=== PATIENT | female | born 1975 | race Caucasian/White ===

== ENCOUNTER 2016-10-29 07:28 | Day surgery (SDC) | payer BC ==
[~2016-10-29 07:28] MED LIST: Lactated Ringers 1,000 ML IV SCH; Lidocaine 1%/Sod Bicarbonate in NS 8.4% 1 ML Syringe IV PRN; Midazolam 1 MG/ML 2 ML SDV ONE; Ondansetron 4 MG/2 ML SDV IVPUSH PRN; Propofol 200 MG/20 ML SDV ONE; Rocuronium 50 MG/5 ML Vial ONE; Sodium Chloride 0.9% 10 ML Syringe FLUSH PRN; ceFAZolin 1 GM Vial ONE; diphenhydrAMINE 50 MG/ML SDV IVPUSH PRN; fentaNYL 250 MCG/5 ML SDV ONE
[2016-10-29] MEDS: Lidocaine 1%/Sod Bicarbonate in NS 8.4% 1 ML Syringe IV PRN (07:40)
--- NOTE | 2016-10-29 07:44 | PCM.PREANE ---
Preanesthetic Assessment - Anesthesia/Transfusion/Family Hx Anesthesia History: Prior Anesthesia Without Reaction Family History of Anesthesia Reaction: No (not that she is aware of-patient is adopted) Transfusion History: Prior Transfusion Without Reaction Intubation History: Unknown - Review of Systems General: No Symptoms Pulmonary: No Symptoms Cardiovascular: No Symptoms Gastrointestinal: No symptoms Neurological: No Symptoms Other: Reports: None - Physical Assessment NPO Status Date: 10/28/16 NPO Status Time: 23:45 Pulse: 93 O2 Sat by Pulse Oximetry: 97 Respiratory Rate: 16 Blood Pressure: 127/78 Temperature: 96.5 C ASA Class: 2 Mental Status: Alert & Oriented x3 Airway Class: Mallampati = 2 Dentition: Reports: Normal Dentition Thyro-Mental Finger Breadths: 3 Mouth Opening Finger Breadths: 3 ROM/Head Extension: Full Lungs: Clear to auscultation, Normal respiratory effort Cardiovascular: Regular Rate, Regular Rhythm - Allergies Allergies/Adverse Reactions: Allergies Allergy/AdvReac Type Severity Reaction Status Date / Time No Known Allergies Allergy Verified 10/28/16 14:09 - Anesthesia Plan Pre-Op Medication Ordered: None - Acknowledgements Anesthesia Type Planned: General Anesthesia Pt an Appropriate Candidate for the Planned Anesthesia: Yes Alternatives and Risks of Anesthesia Discussed w Pt/Guardian: Yes Pt/Guardian Understands and Agrees with Anesthesia Plan: Yes PreAnesthesia Questionnaire HEENT History: Reports: Impaired Vision, Other (See Below) Other HEENT History: wears glasses Cardiovascular History: Reports: None Respiratory History: Reports: None Gastrointestinal History: Reports: None Genitourinary History: Reports: None [employer]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: Other (See Below) LMP (Approximate): 1 Month (pt has had a tubal ligation) Other OB/BYN History: breast lump Musculoskeletal History: Reports: Back Pain, Chronic, Other (See Below) Other Musculoskeletal History: back pain Neurological History: Reports: None Psychiatric History: Reports: Other (See Below) Other Psychiatric History: claustrophobia Endocrine/Metabolic History: Reports: None Hematologic History: Reports: Blood Transfusion(s) (pt had blood transfusion following of child) Immunologic History: Reports: None Oncologic (Cancer) History: Reports: None, Breast (see note in chart) Dermatologic History: Reports: None - Past Surgical History Head Surgeries/Procedures: Reports: None HEENT Surgical History: Reports: None Cardiovascular Surgical History: Reports: None Respiratory Surgical History: Reports: None GI Surgical History: Reports: None Female Surgical History: Reports: D&C, Tubal Ligation (no anesthetic complications noted with either surgery) Male Surgical History: Reports: None Endocrine Surgical History: Reports: None Neurological Surgical History: Reports: None Musculoskeletal Surgical History: Reports: None Oncologic Surgical History: Reports: None Dermatological Surgical History: Reports: None - SUBSTANCE USE Smoking Status *Q: Former Smoker Number of Drinks Per Day: 1 Recreational Drug Use History: No - HOME MEDS Home Medications: Home Meds Ibuprofen [Advil] 800 mg PO BID PRN 10/28/16 [History] Multivitamin [Multivitamins] 1 tab PO DAILY 10/28/16 [History] Naproxen Sodium [Aleve] 220 mg PO BID 10/28/16 [History] - CURRENT (IN HOUSE) MEDS Current Meds: Current Medications Diphenhydramine HCl (Benadryl) 25 mg IVPUSH Q6H PRN PRN Reason: pruritis Fentanyl (Sublimaze) 50 mcg IVPUSH Q5M PRN PRN Reason: Pain Stop: 10/29/16 07:33 Hydromorphone HCl (Dilaudid) 0.5 mg IVPUSH Q15M PRN PRN Reason: severe pain Stop: 10/29/16 07:33 Lactated Ringer's (Ringers, Lactated) 1,000 mls @ 125 mls/hr IV ASDIRECTED ALEXANDR Stop: 10/29/16 23:00 Lidocaine HCl (Xylocaine-Mpf 1%) 10 ml INJECT ONETIME ONE Stop: 10/29/16 08:16 Lidocaine/Sodium Bicarbonate (Buffered Lidocaine 1% In Ns 8.4%) 0.25 ml IV ONETIME PRN PRN Reason: Prior to IV Start Stop: 10/29/16 18:00 Ondansetron HCl (Zofran) 4 mg IVPUSH ONETIME PRN PRN Reason: Nausea/Vomiting Sodium Chloride (Saline Flush) 10 ml FLUSH ASDIRECTED PRN PRN Reason: Keep Vein Open Stop: 10/29/16 18:00 Discontinued Medications Cefazolin Sodium (Ancef) Confirm Administered Dose 1 gm .ROUTE .STK-MED ONE Stop: 10/29/16 07:08 Cefazolin Sodium (Ancef) Confirm Administered Dose 1 gm .ROUTE .STK-MED ONE Stop: 10/29/16 07:08 Fentanyl (Sublimaze) Confirm Administered Dose 250 mcg .ROUTE .STK-MED ONE Stop: 10/29/16 07:03 Lactated Ringer's (Ringers, Lactated) 1,000 mls @ 125 mls/hr IV ASDIRECTED ALEXANDR Lidocaine/Sodium Bicarbonate (Buffered Lidocaine 1% In Ns 8.4%) 0.25 ml IV ONETIME PRN PRN Reason: Prior to IV Start Midazolam HCl (Versed 1 Mg/Ml) Confirm Administered Dose 2 mg .ROUTE .STK-MED ONE Stop: 10/29/16 07:04 Propofol (Diprivan 20 Ml) Confirm Administered Dose 200 mg .ROUTE .STK-MED ONE Stop: 10/29/16 07:03 Rocuronium [place] (Zemuron) Confirm Administered Dose 50 mg .ROUTE .STK-MED ONE Stop: 10/29/16 07:04 Sodium Chloride (Saline Flush) 10 ml FLUSH ASDIRECTED PRN PRN Reason: Keep Vein Open
[2016-10-29] MEDS ORDERED: Sodium Chloride 0.9% 10 ML ONE (07:51)
[2016-10-29] MEDS ORDERED: Lidocaine 1% with EPINEPHrine 1:100,000 20 ML MDV ONE (07:52)
[2016-10-29] MEDS ORDERED: Bupivacaine 0.5%/EPINEPHrine 1:200,000 50 ML MDV ONE (07:52)
[2016-10-29] MEDS ORDERED: HYDROmorphone 0.5 MG/0.5 ML Syringe IVPUSH PRN ×2 (08:00→12:43)
[2016-10-29] MEDS ORDERED: fentaNYL 100 MCG/2 ML SDV IVPUSH PRN (08:00)
[2016-10-29] MEDS ORDERED: Lidocaine 1% 30 ML SDV INJECT ONE (08:15)
--- NOTE | 2016-10-29 09:34 | PCM.OPNOTE ---
- General Post-Op/Procedure Note Date of Surgery/Procedure: 10/29/16 Operative Procedure(s): 1. Left partial mastectomy with sentinel lymph node biopsy. 2. Injection of blue dye and radiotracer Pre Op Diagnosis: Invasive ductal carcinoma of the central aspect of the left breast, ER/ID positive, HER-2/rufus negative, with some associated ductal carcinoma in situ Post-Op Diagnosis: Same Anesthesia Technique: General ET tube, Local Primary Surgeon: Татьяна Medina Anesthesia Provider: Sheila Ramirez Pathology: 1. Left breast tissue 2. Left sentinel node Count 957, background 200 3. New inferior margin 4. New lateral margin Fluid Replacement, Intraop: 1,200 (mL crystalloid ) EBL in mLs: 10 Complications: None Condition: Good Free Text/Narrative:: INDICATION FOR PROCEDURE: The patient is a 41-year-old woman who was referred to me by FABIO Guy. She was ultimately found to have a 7 mm lesion of the central left breast on breast MRI that was biopsy proven invasive ductal carcinoma, ER/ID positive, HER-2/rufus negative. The patient desired breast conservation therapy. Wire localized partial mastectomy with sentinel lymph node biopsy were discussed with her. Dr. Soni De Santiago is her medical oncologist. Dr. Rolando Lombardi is her radiation oncologist. We discussed risks and benefits of the procedure and the patient found these risks acceptable and agreed to proceed. DESCRIPTION OF PROCEDURE: The patient was taken to the operating room and placed in the supine position. Sequential compressive devices were placed on the bilateral lower extremities. Preoperative antibiotics were administered as per protocol. After induction of general endotracheal anesthesia, the left breast was prepped with alcohol and I injected sulfur colloid into the dermal space of the nipple-areolar complex. This was followed with an injection of 1 mL of methylene blue mixed with 9 mL of sterile saline into the dermal space. The breast was then massaged for 5 minutes. The left breast was then prepped and draped in usual sterile fashion. The patient's wire localization films were reviewed. A curvilinear incision was made using a scalpel after first injecting local anesthetic at the superior aspect of the areola. Dissection was carried back to the wire entering the breast tissue, and the wire was brought out of the skin into the wound. The surrounding tissue was grasped using an Allis clamp and was excised using Harmonic scalpel. The specimen was marked with a silk suture, double stitch anterior, long stitch laterally, short stitch superiorly. This was sent for mammography, followed by evaluation by pathology. The clip was noted to be in a good location within the specimen. Pathology notified me they would recommend additional margin inferiorly and laterally based on the location of the biopsy cavity within the specimen. Additional margins were taken using the Harmonic scalpel. A stitch was placed on the new margin. 3-0 Vicryl suture was used to reapproximate the breast tissue after copious irrigation and hemostasis was obtained using electrocautery. The gamma probe was used to identify the area of maximum uptake in the left axilla. Local anesthetic was injected and a skin incision was made using a scalpel. This was carried down through the subcutaneous fat to the axillary fat pad using electrocautery. The sentinel node was then dissected from the surrounding structures with utilization of the gamma probe for guidance. The node was identified and excised using a harmonic scalpel. The node was blue and radioactive. The count on the sentinel node was 957. The background was 200 maximally, but most most of the background was 90 or less. The pathology returned that the sentinel node was negative. The axilla was irrigated, hemostasis confirmed, and the tissue approximated using a running 3-0 Vicryl suture. The skin incisions from both sites were closed using a running 4-0 subcuticular Monocryl suture. Dermabond was applied to both incision sites. 4 x 4's and a Kerlix fluffs were applied to the wounds. The patient was placed in a breast binder. The patient was awakened from sedation and transferred to the recovery room in stable condition having tolerated the procedure well. Sponge and instrument counts were reported correct at the end of the case. POSTOPERATIVE PLAN: I discussed with the patient's my intraoperative findings and recommendations. She has been provided with a prescription for Percocet 5/325 mg 1-2 tabs by mouth every 4 hours PRN pain, Senna -S, and Zofran ODT. She is to wear her breast binder or supportive athletic bra continuously for 2 weeks. She may remove her dressings and shower tomorrow afternoon. She is to call the office with any questions or concerns before her followup appointment in one week.
[2016-10-29] MEDS ORDERED: fentaNYL 250 MCG/5 ML SDV ONE (09:51)
[2016-10-29] MEDS ORDERED: HYDROmorphone 1 MG/ML Syringe ONE (10:19)
[2016-10-29] MEDS ORDERED: Neostigmine Methylsulfate 1 MG/ML 5 ML Syringe ONE (10:49)
[2016-10-29] MEDS ORDERED: Ondansetron 4 MG/2 ML SDV ONE (10:49)
[2016-10-29] MEDS ORDERED: Lactated Ringers 1,000 ML ONE (10:52)
--- NOTE | 2016-10-29 11:25 | PCM.POSTAN ---
POST ANESTHESIA ASSESSMENT - MENTAL STATUS Mental Status: alert, oriented - VITAL SIGNS Pulse Rate: 113 SaO2: 100 Resp Rate: 27 Blood Pressure: 142/98 Temperature: 36.8 C - RESPIRATORY Respiratory Status: respiratory rate WNL, airway patent, O2 saturation stable - CARDIOVASCULAR CV Status: pulse rate WNL, blood pressure stable - GASTROINTESTINAL GI Status: no symptoms - PAIN Pain Score: 0 - POST OP HYDRATION Hydration Status: adequate & stable
[2016-10-29] MEDS: HYDROmorphone 0.5 MG/0.5 ML Syringe IVPUSH PRN ×2 (11:28→11:47)
--- NOTE | 2016-10-29 11:30 | MY ---
Needle localization of left breast Procedure was explained to the patient. Stereotactic marking clip that revealed previous carcinoma was localized. After confirmation of good needle position, hookwire was placed through the needle and needle removed. Final position of the wire shows very close position of the stiff end of the wire to the stereotactic marking clip. Following lumpectomy, specimen radiograph was obtained which will be dictated separately which shows removal of the wire and of the clip. Impression: 1. Successful needle needle localization of stereotactic marking clip. Diagnostic code #1
[2016-10-29] MEDS: fentaNYL 100 MCG/2 ML SDV IVPUSH PRN ×4 (11:34→12:07)
--- NOTE | 2016-10-29 11:41 | MY ---
Specimen radiograph: Single specimen radiograph was obtained following lumpectomy. Study shows the wire in place as well as a stereotactic marking clip. Impression: 1. Specimen radiograph showing a needle localization wire and stereotactic marking clip. Diagnostic code #2
[2016-10-29] MEDS ORDERED: Acetaminophen/oxyCODONE 325-5 MG Tab PO PRN (11:46)
[2016-10-29 13:11] VITALS: BP 122/84
--- NOTE | 2016-10-30 11:31 | NM ---
[place] lymph node injection Dr. Medina injected 1.02 mCi of technetium 99m sulfur colloid into the left breast for sentinel lymph node study. No images were obtained. Diagnostic code #1
== END 2016-10-29 13:15 | disposition home or self-care (01) ==
LOC: JD.SDS 07:28
PROVIDERS: ATTEND Surgery
DX: C50.112 Malignant neoplasm of central portion of left female breast (principal); N60.12 Diffuse cystic mastopathy of left breast; E66.9 Obesity, unspecified; Z17.0 Estrogen receptor positive status [ER+]; Z80.3 Family history of malignant neoplasm of breast; Z98.51 Tubal ligation status; Z98.890 Other specified postprocedural states; Z79.899 Other long term (current) drug therapy; Z87.891 Personal history of nicotine dependence
CPT/HCPCS: 19281; 19283; 19301; 38525; 38792; 38900; 76098; 88305; 88307; 88329; 88331; 88332; A9270; A9541; J0690; J1170; J2250; J2405; J2710; J3010; J7050; J7120; Q9968; 00404; J2704

== ENCOUNTER 2021-01-31 19:11 | Emergency (ER) | payer BC, OTHER ==
--- NOTE | 2021-01-31 19:18 | EDM.PDOC ---
ED HPI GENERAL MEDICAL PROBLEM - General Chief Complaint: Back Pain or Injury Stated Complaint: [facility] Time Seen by Provider: 01/31/21 19:17 - History of Present Illness INITIAL COMMENTS - FREE TEXT/NARRATIVE: 45-year-old female presents the emergency room with low back pain. The patient does not know what happened she slid back into her little car seat and developed sudden onset low back pain. She does not have any pain that extends into her legs she has no loss of bowel or bladder control the pain is localized to her low back. The patient has been told she has degenerative joint disease in her back and figures it might be getting worse. The patient can hardly move and needed to be brought in by EMS.. - Related Data Allergies Allergy/AdvReac Type Severity Reaction Status Date / Time pregabalin [From Lyrica] Allergy Fainting Verified 01/31/21 19:21 Home Meds: Home Meds DULoxetine [Cymbalta] 60 mg PO DAILY 01/31/21 [History] LORazepam [Ativan] 1 mg PO BEDTIME 01/31/21 [History] Metoprolol Succinate [Toprol Xl] 25 mg PO DAILY 01/31/21 [History] Venlafaxine [Effexor XR] 37.5 mg PO DAILY 01/31/21 [History] oxyCODONE 5 mg PO DAILY 01/31/21 [History] Past Medical History HEENT History: Reports: Impaired Vision, Other (See Below) Other HEENT History: wears glasses Cardiovascular History: Reports: None Respiratory History: Reports: None Gastrointestinal History: Reports: None Genitourinary History: Reports: None CLAIMS CONSULTANT History: Reports: Other (See Below) Other CLAIMS CONSULTANT History: breast lump Musculoskeletal History: Reports: Back Pain, Chronic, Other (See Below) Other Musculoskeletal History: back pain Neurological History: Reports: None Psychiatric History: Reports: Other (See Below) Other Psychiatric History: claustrophobia Endocrine/Metabolic History: Reports: None Hematologic History: Reports: Blood Transfusion(s) (pt had blood transfusion following of child) Immunologic History: Reports: None Oncologic (Cancer) History: Reports: None, Breast (see note in chart) Dermatologic History: Reports: None - Past Surgical History Head Surgeries/Procedures: Reports: None HEENT Surgical History: Reports: None Cardiovascular Surgical History: Reports: None Respiratory Surgical History: Reports: None GI Surgical History: Reports: None Female Surgical History: Reports: D&C, Tubal Ligation (no anesthetic complications noted with either surgery) Male Surgical History: Reports: None Endocrine Surgical History: Reports: None Neurological Surgical History: Reports: None Musculoskeletal Surgical History: Reports: None Oncologic Surgical History: Reports: None Dermatological Surgical History: Reports: None Social & Family History - Family History Family Medical History: No Pertinent Family History - Caffeine Use Caffeine Use: Reports: None - Living Situation & Occupation Living situation: Reports: Occupation: Employed ED ROS GENERAL - Review of Systems Review Of Systems: See Below Constitutional: Reports: No Symptoms HEENT: Reports: No Symptoms Respiratory: Reports: No Symptoms Cardiovascular: Reports: No Symptoms GI/Abdominal: Reports: No Symptoms : Reports: No Symptoms Musculoskeletal: Reports: Back Pain Skin: Reports: No Symptoms Neurological: Reports: No Symptoms ED EXAM, GENERAL - Physical Exam Exam: See Below Exam Limited By: No Limitations General Appearance: Alert, Obese Head: Atraumatic Neck: Normal Inspection. No: Full Range of Motion, Lymphadenopathy (R), Tender Lateral, Tender Midline Respiratory/Chest: No Respiratory Distress, Lungs Clear, Normal Breath Sounds Cardiovascular: Regular Rate, Rhythm, No Edema, No Murmur GI/Abdominal: Normal Bowel Sounds, Soft, Non-Tender Back Exam: Other (Tenderness in the low back mostly in the paraspinous muscle region right more so than left) Extremities: Normal Range of Motion (Straight leg raises do not cause worsening back pain except a little bit of worsening past spasm at near 90 degrees no radicular irritation) Neurological: Alert, Oriented, Normal Cognition Course - Orders/Labs/Meds Meds: Medications Discontinued Medications Generic Name Dose Route Start Last Admin Trade Name Freq PRN Reason Stop Dose Admin Hydromorphone HCl 0.5 mg 01/31/21 20:13 01/31/21 20:18 Hydromorphone 0.5 Mg/0.5 Ml Syringe IVPUSH 01/31/21 20:14 0.5 mg ONETIME ONE Administration Ketorolac Tromethamine 60 mg 01/31/21 20:10 Ketorolac 60 Mg/2 Ml Sdv IM 01/31/21 20:11 ONETIME ONE Orphenadrine Citrate 100 mg 01/31/21 20:10 01/31/21 20:16 Orphenadrine 100 Mg Tab.Er PO 01/31/21 20:11 100 mg ONETIME ONE Administration - Re-Assessments/Exams Free Text/Narrative Re-Assessment/Exam: 01/31/21 22:16 X-ray is quite concerning for a T12 with an anterior wedge deformity. She may need further images to clarify the age of this. But I can get an MRI on her tonight. We will start her on some hydrocodone continue the Norflex and have her follow-up with her primary healthcare provider they can facilitate further imaging and referral for kyphoplasty if indicated. Departure - Departure Time of Disposition: 22:19 Disposition: Home, Self-Care 01 Clinical Impression: Compression fracture of T12 vertebra - Discharge Information Forms: ED Department Discharge Additional Instructions: Return to the emergency room with any questions problems or worsening symptoms. I have given you 20 pills of hydrocodone 5/325 take 1 or 2 every 6 hours as needed for pain. He will get these from the machine out in the waiting room. Do not drive or return to work within 12 hours of using this medication. Follow-up with your regular healthcare provider as soon as you can further imaging may be beneficial such as an MRI. If indicated consider referral to [facility] for repair of this with a procedure called kyphoplasty.
[2021-01-31] MEDS ORDERED: Orphenadrine 100 MG Tab.ER PO ONE (20:10)
[2021-01-31] MEDS ORDERED: Ketorolac 60 MG/2 ML SDV IM ONE (20:10)
[2021-01-31] MEDS ORDERED: HYDROmorphone 0.5 MG/0.5 ML Syringe IVPUSH ONE (20:13)
--- NOTE | 2021-01-31 21:24 | CR ---
Lumbar spine: AP and lateral views of the lumbar spine were obtained as well as coned-down lateral view centered to the lumbosacral junction. Comparison: Prior MRI lumbar spine study of 07/05/15. Fairly severe anterior wedge deformity is noted of T12. Age of this is indeterminate and please correlate with patient's symptoms. Slight sclerosis is noted within the inferior edge of L1 with mild posterior disc space narrowing at L1-2. Minimal disc space narrowing is seen posteriorly at L2-3. Other disc spaces are maintained. Mild scattered endplate osteophytes are seen. Pedicles are intact. Visualized transverse and spinous processes are intact. Impression: 1. Fairly severe anterior wedge deformity at T12 which is age indeterminate and please correlate with patient's symptoms. 2. Mild degenerative change as described above. Diagnostic code #3
[2021-01-31 22:08] VITALS: BP 168/99; PULSE 83
[2021-01-31] MEDS ORDERED: Acetaminophen/HYDROcodone 325-5 MG Tab PO ONE (22:15)
== END 2021-01-31 22:45 | disposition home or self-care (01) ==
LOC: JD.ED 19:11
DX: S22.080A Wedge compression fracture of T11-T12 vertebra, initial encounter for closed fracture (principal); Z88.8 Allergy status to other drugs, medicaments and biological substances; X50.0XXA Overexertion from strenuous movement or load, initial encounter
CPT/HCPCS: 72100; 96374; 99284; A9270; J1170; 99283

== ENCOUNTER 2024-03-07 03:08 | Emergency (ER) | payer OTHER ==
[2024-03-07] MEDS: Sodium Chloride 0.9% 1,000 ML IV ONE (03:33)
[2024-03-07 03:45] LABS: BASOPHILS ABSOLUTE AUTO 0.1 K/mm3 (0.0-0.2); BASOPHILS PERCENT AUTO 0.5 % (0.0-1.0); EOSINOPHILS PERCENT AUTO 0.1 % (0.0-6.0); HEMATOCRIT 53.8 % (37.0-47.0); HEMOGLOBIN 18.1 gm/dl (12.0-16.0); IMMATURE GRAN ABSOLUTE AUTO 1.29 K/mm3 (0.00-0.05); IMMATURE GRAN PERCENT AUTO 5.9 % (0.0-0.4); LYMPHOCYTES ABSOLUTE AUTO 1.1 K/mm3 (1.0-4.8); LYMPHOCYTES PERCENT AUTO 4.9 % (24.0-44.0); MEAN CORPUSCULAR HEMOGLOBIN 30.7 pg (28.0-32.0); MEAN CORPUSCULAR HGB CONC 33.6 g/dl (32.0-36.0); MEAN CORPUSCULAR VOLUME 91.2 fl (83.0-99.0); MEAN PLATELET VOLUME 10.8 fl (9.4-12.3); MONOCYTES ABSOLUTE AUTO 1.5 K/mm3 (0.0-0.8); MONOCYTES PERCENT AUTO 6.7 % (0.0-8.0); NEUTROPHILS PERCENT AUTO 81.9 % (41.0-71.0); PLATELET COUNT,PLT 358 K/mm3 (150-400); WHITE BLOOD CELL COUNT,WBC 21.98 K/mm3 (3.9-11.3)
[2024-03-07] MEDS ORDERED: Insulin Regular, Human 100 Units/ML 3 ML Vial IVPUSH ONE (03:49)
[2024-03-07 03:58] LABS: A/G RATIO 0.5 (1-2); ALANINE AMINOTRANSFERASE,ALT 37 U/L (14-59); ALBUMIN 3.1 g/dl (3.4-5.0); ALKALINE PHOSPHATASE 258 U/L (46-116); ANION GAP 35.1 (5-15); BLOOD UREA NITROGEN,BUN 21 mg/dL (7-18); BUN/CREATININE RATIO 13.1 (14-18); CALCIUM 10.3 mg/dL (8.5-10.1); CHLORIDE,CL 82 mEq/L (98-107); CREATININE 1.6 mg/dL (0.55-1.02); EST CRCL DRUG DOSING (CG) 49.08 mL/min; ESTIMATED GFR 39 mL/min (>60); PROTEIN TOTAL,TP 9.1 g/dl (6.4-8.2); SODIUM,NA 120 mEq/L (136-145); TROPONIN I HIGH SENSITIVITY 20 pg/mL (<=51)
[2024-03-07] MEDS: Insulin Regular, Human 100 Units/ML 10 ML Vial IVPUSH ONE (04:02)
[2024-03-07] MEDS: Sodium Chloride 0.9% 1,000 ML ONE (04:04)
[2024-03-07 04:05] LABS: PCO2 ARTERIAL 9.1 mmHg (35.0-45.0)
[2024-03-07 04:05] LABS: CARBON DIOXIDE,CO2 6 mEq/L (21-32); LACTIC ACID 7.9 mmol/L (0.4-2.0)
[2024-03-07 04:06] LABS: BASE EXCESS ARTERIAL -29.3 (-2-2.0); BICARBONATE,ARTERIAL 2.4 meq/L (22.0-26.0); O2 SATURATION ARTERIAL 99.2 % (96.0-97.0)
[2024-03-07 04:06] LABS: GLUCOSE RANDOM 507 mg/dL (70-99)
[2024-03-07 04:08] LABS: ASPARTATE AMNIOTRANSFERASE,AST 58 U/L (15-37); POTASSIUM,K 3.1 mEq/L (3.5-5.1)
[2024-03-07 04:15] LABS: CORONAVIRUS COVID-19 NAA NEGATIVE (NEGATIVE); INFLUENZA A NAA NEGATIVE (NEGATIVE); RESPIRATORY SYNCYTIAL VIR NAA NEGATIVE (NEGATIVE)
[2024-03-07 04:16] LABS: APPEARANCE,URINE SLT CLOUDY (Clear); BILIRUBIN,URINE 2+ (Negative); COLOR,URINE YELLOW (Yellow); GLUCOSE,URINE 2+ (Negative); KETONES,URINE 4+ (Negative); LEUKOCYTE ESTERASE,URINE NEGATIVE (Negative); NITRITE,URINE NEGATIVE (Negative); OCCULT BLOOD,URINE 3+ (Negative); PH,URINE 5.5 (5.0-8.0); PROTEIN,URINE 3+ (Negative)
[2024-03-07 04:23] LABS: C-REACTIVE PROTEIN > 25.00 mg/dL (<0.30)
[2024-03-07 04:36] LABS: SLIDE REVIEW ABNORMAL SMEAR
[2024-03-07 04:43] LABS: BACTERIA,URINE FEW /hpf (FEW); COARSE GRANULAR CASTS,URINE 20-30 /hpf (0-5); MUCUS,URINE NOT SEEN /hpf (FEW); WBC,URINE 40-50 /hpf (0-5)
[2024-03-07] MEDS: Ondansetron 4 MG/2 ML SDV IVPUSH ONE (04:44)
[2024-03-07] MEDS: Sodium Chloride 0.9% 1,000 ML IV SCH ×3 (04:57→09:01)
[2024-03-07] MEDS: Sodium Bicarbonate 8.4% 50 MEQ/50 ML Syringe IVPUSH ONE (05:19)
[2024-03-07] MEDS: Sodium Bicarbonate 150 MEQ in Dextrose 5% in Water 1,000 ML IV ONE (05:32)
[2024-03-07] MEDS: Insulin Regular in 0.9 % NACL 100 ML IV SCH (05:36)
[2024-03-07] MEDS: Insulin Regular in 0.9 % NACL 100 ML ONE (05:40)
[2024-03-07] MEDS: Iopamidol 755 Mg/ML 100 ML Bottle IVPUSH ONE (06:03)
[2024-03-07] MEDS: Sodium Chloride 0.9% 100 ML IV SCH (06:04)
[2024-03-07 07:08] VITALS: BP 101/63; PULSE 109
[2024-03-07] MEDS: Piperacillin/Tazobactam 4.5 GM in Sodium Chloride 0.9% 100 ML IV ONE (07:35)
[2024-03-07] MEDS: Sodium Chloride 0.9% 10 ML Syringe FLUSH PRN (07:51)
[2024-03-07] MEDS: VANCOmycin 1.5 GM/300 ML 1.5 GM in Premix Bag 1 BAG IV ONE (07:58)
[2024-03-07 08:27] LABS: BASE EXCESS VENOUS 18.9 (-4.0-2.0); BICARBONATE,VENOUS 8.1 meq/L (22-26); O2 SATURATION VENOUS 78.5; PCO2 VENOUS 21.6 mmHg (41-51)
[2024-03-07] MEDS: Potassium Chloride 10 MEQ in Premix Bag 1 BAG IV SCH (08:56)
[2024-03-07 09:04] LABS: A/G RATIO 0.5 (1-2); ALBUMIN 2.3 g/dl (3.4-5.0); BILIRUBIN TOTAL 0.9 mg/dL (0.2-1.0); CALCIUM 9.6 mg/dL (8.5-10.1); EST CRCL DRUG DOSING (CG) 78.53 mL/min; PROTEIN TOTAL,TP 7.4 g/dl (6.4-8.2)
[2024-03-07] MEDS: Potassium Chloride 20 MEQ Tab.ER PO ONE (09:17)
== END 2024-03-07 10:00 ==
LOC: JD.ED 03:08
DX: E11.10 Type 2 diabetes mellitus with ketoacidosis without coma (principal); E11.65 Type 2 diabetes mellitus with hyperglycemia; I26.90 Septic pulmonary embolism without acute cor pulmonale; E87.6 Hypokalemia; Z88.8 Allergy status to other drugs, medicaments and biological substances; Z79.899 Other long term (current) drug therapy; Z90.710 Acquired absence of both cervix and uterus
CPT/HCPCS: 0241U; 36415; 36600; 71045; 71045-26; 71275; 71275-26; 80053; 81001; 82010; 82803; 82947; 83605; 84484; 85025; 85379; 86140; 87040; 87077; 87186; 93005; 93010; 96361; 96365; 96366; 96368; 96375; 99285; 99285-25; A9270-GY; J1815; J1815-GY; J2405; J2543; J3372; J3480; J3490; J7030; J7060; Q9967